=== PATIENT | female | born 1985 | race Caucasian/White ===

== ENCOUNTER → 2017-06-24 | Outpatient (CLI) | payer OTHER ==
[~2017-06-24] MED LIST: PREDNISONE 20 M20 M1 PO
== END ==
LOC: M.ULTRA 11:00
DX: R94.5 Abnormal results of liver function studies (principal); K76.0 Fatty (change of) liver, not elsewhere classified

== ENCOUNTER → 2018-08-03 | Day surgery (SDC) | payer OTHER ==
[2018-08-03 06:49] LABS: HEMATOCRIT 37.2 % (37.0-47.0); HEMOGLOBIN 12.8 gm/dL (12.0-15.0); MCH 32.2 pg (26.0-34.0); MCHC 34.4 g/dL (28.0-37.0); MCV 93.4 fL (80.0-100.0); RBC 3.99 mil/uL (4.20-5.00); RDW-CV 12.2 % (10.5-14.5); WBC 4.5 thou/uL (4.0-11.0)
[2018-08-03 06:56] LABS: CALCIUM 8.4 mg/dL (8.5-10.1); CREATININE 0.8 mg/dL (0.6-1.3); POTASSIUM 3.7 mmol/L (3.5-5.1)
--- NOTE | 2018-08-03 11:06 | OP ---
[address] [address] OPERATIVE REPORT Name: EUGENIOSIMONE FERNANDEZ [facility]: [facility]#: [id number] Admission: 08/03/18 Attend Phys: Deborah Randolph DO Discharge: Date of : 87 Report #: [id number] THIS REPORT FOR: //name// CC: Deborah Randolph Florencio Louis DATE OF SERVICE: 08/03/2018 PREOPERATIVE DIAGNOSES: 1. Perianal skin lesion. 2. Hemorrhoids. POSTOPERATIVE DIAGNOSES: 1. Perianal skin lesion. 2. Hemorrhoids. PROCEDURE: 1. Rectal exam under anesthesia. 2. Excision of perianal skin lesion. SURGEON: Deborah Randolph DO ANESTHESIA: General endotracheal. AIR QUALITY MANAGER: Dr. Sirisha Cabrera, Resident. SPECIMENS: Perianal skin lesion. ESTIMATED BLOOD LOSS: 10 mL. COMPLICATIONS: None. INDICATIONS FOR PROCEDURE: The patient is a 32-year-old female who presented to my office with complaints of intermittent inflammation of hemorrhoids and discomfort associated with the hemorrhoids. The patient on exam was noted to have grade 1-2 hemorrhoids as well as a firm external skin lesion in the anterior left lateral position. The patient was explained the procedure including risks, benefits and alternatives. All questions were answered to the patient's satisfaction and informed consent was obtained. DESCRIPTION OF PROCEDURE: The patient was brought back to the operating room and placed in supine position. General anesthesia was induced. SCDs were placed on bilateral lower extremities and prophylactic antibiotics were administered. Next, after a timeout was performed and the patient was placed in lithotomy position, and the area was prepped and draped in the usual sterile fashion, an external exam under anesthesia was performed. The patient was noted [address] [address] OPERATIVE REPORT Name: SIMONE BECKER Room: [facility]#: [id number] Admission: 08/03/18 Attend Phys: Deborah Randolph DO Discharge: Date of : 87 Report #: [id number] to have approximately 5 mm skin lesion, a pedunculated skin lesion that was slightly firm in texture in the anterior left lateral position. Upon anoscopy, the patient was noted to have grade 2 hemorrhoids in the left lateral position as well as a small grade 1 hemorrhoid in the anterior left anterior position. The external skin lesion there was also noted to be approximately 1 mm red nodule within the anal canal that was also identified. At this time, I grasped the skin lesion with a DeBakey. Using a small jaw LigaSure device, the pedunculated lesion was removed from the level of the skin. This was then sent off to pathology and labeled perianal skin lesion. The small 1 mm nodule was grasped with an Adson forceps and removed from the anal mucosa using a 15 blade scalpel. Hemostasis was achieved using Bovie cautery. A 20 mL of 0.5% Marcaine was injected in the subcutaneous tissues. Hemostasis was noted to be excellent upon completion of the procedure. The patient tolerated the procedure well without any complications. She was awakened from the anesthesia in the operating room and taken to the PACU in stable condition for further recovery. <ELECTRONICALLY SIGNED> By: Deborah Randolph DO 08/03/18 1106 [id number] Randolph DO /nt
--- NOTE | 2018-08-07 10:07 | PATH ---
[address] [address] PATHOLOGY RPT PROCEDURE Name: EUGENIOLANETTE JIM Room: [facility].#: [id number] Admission: 08/03/18 Date of : 87 Discharge: Report #: [id number] Path Case #: [id number] [facility] Accession Number: [id number] . 01 Material submitted: . ANAL LESION . 01 Clinical history: . Anal skin lesion. . 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 - Focally there are some koilocytes suggestive of an early condyloma. - There is no evidence of dysplasia or malignancy. (SHA:pit 08/04/2018) QTP/08/04/2018 . 02 Electronically signed: . Marcello Galindo MD, Pathologist NPI- [id number] . 01 Gross description: . Received in formalin labeled "Lanette Becker, anal lesion" is a portion of pink-jo mucosa or possible skin measuring 0.9 x 0.8 x 0.5 cm. The skin surface displays a pink-jo roughened ulcerated possible lesion measuring 0.5 x 0.4 cm. The apparent resection margin is inked black. The specimen is sectioned and submitted entirely in cassette A1. ([facility]; 08/03/2018) SY/SY . 02 Pathologist provided ICD-10: K62.89 . 02 CPT . 445534 Specimen Comment: A courtesy copy of this report has been sent to Specimen Comment: [phone], . Specimen Comment: Report sent to / DR WATERS Specimen Comment: A duplicate report has been generated due to demographic updates. Performed at: [address] [facility] [id number] MD John Bentley MD Phone: [phone] Performed at: [address] [id number] [place] [address] PATHOLOGY RPT PROCEDURE Name: LANETTE BECKER Room: [facility]#: [id number] Admission: 08/03/18 Date of : 87 Discharge: Report #: [id number] Path Case #: [id number] MD Tin Rocha MD Phone: [phone]
== END | disposition home or self-care (01) ==
LOC: M.SUR 06:03
PROVIDERS: Surgery
DX: D12.9 Benign neoplasm of anus and anal canal (principal); K64.1 Second degree hemorrhoids; K62.89 Other specified diseases of anus and rectum; K64.9 Unspecified hemorrhoids; A63.0 Anogenital (venereal) warts